=== PATIENT | female | born 1950 | race Caucasian/White ===

== ENCOUNTER 2019-07-20 06:08 | Emergency (ER) | payer MEDICARE, BC ==
--- NOTE | 2019-07-20 07:46 | RADIOLOGY REPORT (SQ) ---
Chest single view on 07/20/2019 at 6:45 AM CLINICAL INDICATION: Shortness of breath, chest pain COMPARISON: None FINDINGS: Postthoracotomy left rib changes are noted. There is unusual opacity along the left medial upper chest along the aortic arch . This may represent unusual aneurysm versus a pulmonary mass. Unless this is a known etiology would recommend follow-up chest CT with contrast. Heart is within normal limits for size. Lungs are otherwise clear. IMPRESSION: Unusual rounded opacity in the left suprahilar region may represent unusual thoracic aortic aneurysm versus mass. Unless this is from a known etiology would recommend follow-up chest CT with contrast to better evaluate.
[2019-07-20 07:51] LABS: ALBUMIN 4.6 g/dL (3.5-5.0); ALKALINE PHOSPHATASE 112 U/L (38-126); ANION GAP 10 (5-19); ASPARTATE AMINO TRANSFERASE 32 U/L (14-36); BILIRUBIN,DIRECT 0.2 mg/dL (0.0-0.4); BILIRUBIN,TOTAL 0.3 mg/dL (0.2-1.3); BLOOD UREA NITROGEN 19 mg/dL (7-20); CALCIUM 9.5 mg/dL (8.4-10.2); CARBON DIOXIDE 25 mmol/L (22-30); CHLORIDE 104 mmol/L (98-107); GLUCOSE 100 mg/dL (75-110); NT PRO BNP 101 pg/mL (<125); POTASSIUM 4.1 mmol/L (3.6-5.0); TOTAL PROTEIN 7.8 g/dL (6.3-8.2); TROPONIN I < 0.012 ng/mL
[2019-07-20 07:58] LABS: ABSOLUTE BASOPHILS # (AUTO) 0.1 10^3/uL (0.0-0.2); ABSOLUTE EOSINOPHILS # (AUTO) 0.1 10^3/uL (0.0-0.6); ABSOLUTE LYMPHOCYTES (AUTO) 3.1 10^3/uL (0.5-4.7); ABSOLUTE MONOCYTES (AUTO) 0.9 10^3/uL (0.1-1.4); ABSOLUTE NEUT (AUTO) 1.5 10^3/uL (1.7-8.2); EOSINOPHILS % (AUTO) 1.8 % (0-6); HEMATOCRIT 40.3 % (36.0-47.0); HEMOGLOBIN 13.8 g/dL (12.0-15.5); LYMPHOCYTES % (AUTO) 55.2 % (13-45); MEAN CORPUSCULAR HEMOGLOBIN 30.5 pg (27.0-33.4); MEAN CORPUSCULAR HGB CONC 34.3 g/dL (32.0-36.0); MEAN CORPUSCULAR VOLUME 89 fl (80-97); MONOCYTES % (AUTO) 16.6 % (3-13); PLATELET COUNT 216 10^3/uL (150-450); RED BLOOD COUNT 4.52 10^6/uL (3.72-5.28); RED CELL DISTRIBUTION WIDTH 13.7 % (11.5-14.0); SEGMENTED NEUTROPHILS % (AUTO) 25.4 % (42-78); TOTAL CELLS COUNTED % (AUTO) 100 %; WHITE BLOOD COUNT 5.7 10^3/uL (4.0-10.5)
--- NOTE | 2019-07-20 07:58 | ER Document Report ---
ED General - General Chief Complaint: Shortness Of Breath Stated Complaint: SHORTNESS OF BREATH Primary Care Provider: KATHY MEIER NP [Primary Care Provider] - Follow up as needed Mode of Arrival: Medic Information source: Patient - HPI Notes: Patient presents with approximately 3 days of increasing shortness of breath and dry cough. She states she has not been able to cough anything up. She does have sharp chest pain but only with coughing. It is better when she does not cough. It radiates across her chest. It is intermittent. It is moderate in intensity. She states she does not have any previous history of congestive heart failure or COPD. She has had no vomiting or diarrhea. No rashes. She states she does not have any previous history of heart disease. - Related Data Allergies/Adverse Reactions: No Known Allergies Allergy (Unverified 07/20/19 07:16) Past Medical History - General Information source: Patient - Social History Smoking Status: Never Smoker Frequency of alcohol use: None Drug Abuse: None Family History: Reviewed & Not Pertinent Patient has suicidal ideation: No Patient has homicidal ideation: No - Past Medical History Cardiac Medical History: Reports: Hx Hypercholesterolemia, Hx Hypertension Past Surgical History: Reports: Hx Cardiac Surgery - coarctation of aorta Review of Systems - Review of Systems Constitutional: Malaise, Weakness. denies: Chills, Fever Cardiovascular: Chest pain. denies: Palpitations Respiratory: Cough, Short of breath. denies: Hemoptysis Gastrointestinal: denies: Abdominal pain -: Yes All other systems reviewed and negative Physical Exam - Vital signs Vitals: Resp Pulse Ox 27 H 100 07/20/19 06:11 07/20/19 06:11 Interpretation: Normal - General General appearance: Appears well, Alert - HEENT Head: Normocephalic, Atraumatic Eyes: Normal Pupils: PERRL - Respiratory Respiratory status: Respiratory distress - Mild Chest status: Nontender Breath sounds: Wheezing - All lang Chest palpation: Normal - Cardiovascular Rhythm: Regular Heart sounds: Normal auscultation Murmur: No - Abdominal Inspection: Normal Distension: No distension Bowel sounds: Normal Tenderness: Nontender Organomegaly: No organomegaly - Back Back: Normal, Nontender - Extremities General upper extremity: Normal inspection, Nontender, Normal color, Normal ROM, Normal temperature General lower extremity: Normal inspection, Nontender, Normal color, Normal ROM, Normal temperature, Normal weight bearing. No: Dae's sign - Neurological Neuro grossly intact: Yes Cognition: Normal Orientation: AAOx4 Ziggy Coma Scale Eye Opening: Spontaneous Ziggy Coma Scale Verbal: Oriented [place] Coma Scale Motor: Obeys Commands [place] Coma Scale Total: 15 Speech: Normal Motor strength normal: LUE, RUE, LLE, RLE Sensory: Normal - Psychological Associated symptoms: Normal affect, Anxious - Skin Skin Temperature: Warm Skin Moisture: Dry Skin Color: Normal Course - Re-evaluation Re-evalutation: 07/20/19 07:57 Patient presents with dry cough shortness of breath. No evidence of cardiac pathology. Chest x-ray does show an abnormal mass in the left upper chest. At this time a CTA has been ordered to further evaluate the mass. She has been placed on BiPAP. She received epinephrine and 3 albuterol's in route. She is currently resting comfortably with saturations of 100% on the BiPAP. She is not in distress at this time. 07/20/19 10:45 Patient was removed from BiPAP and is been observed for 1 hour. She has no further respiratory distress. She is reclining comfortably in sleeping. Her respiratory rate is normal. I do not hear any wheezing or adventitious sounds in the lungs. Her saturations are 94 to 95% while sleeping. She is comfortable with being discharged home with steroids and antibiotics. I will have a follow- up with her family physician as an outpatient. Heart rate is in the 60s. - Vital Signs Vital signs: Temp Pulse Resp BP Pulse Ox 98.9 F 73 19 117/65 92 07/20/19 06:30 07/20/19 06:30 07/20/19 10:01 07/20/19 10:00 07/20/19 10:01 - Laboratory Result Diagrams: 07/20/19 06:17 07/20/19 06:17 Laboratory results interpreted by me: 07/20/19 07/20/19 07/20/19 06:17 06:17 06:17 Lymph % (Auto) 55.2 H [place] % (Auto) 16.6 H Absolute Neuts (auto) 1.5 L Seg Neutrophils % 25.4 L Est GFR ( Amer) 59 L Est GFR (MDRD) Non-Af 49 L Lactic Acid 3.2 H - Diagnostic Test Radiology reviewed: Image reviewed, Reports reviewed - EKG Interpretation by Me EKG shows normal: Sinus rhythm Rate: Normal - 76 Rhythm: NSR Matthews/QRS: No: Right axis deviation, Left axis deviation Discharge - Discharge Clinical Impression: URI (upper respiratory infection) Qualifiers: URI type: unspecified URI Qualified Code(s): J06.9 - Acute upper respiratory infection, unspecified Condition: Stable Disposition: HOME, SELF-CARE Instructions: Upper Respiratory Illness ([facility]) Additional Instructions: Please call your primary care physician as soon as possible to arrange follow-up Prescriptions: Benzonatate [Tessalon Perles 100 mg Capsule] 100 mg PO Q8HP PRN #20 capsule PRN Reason: Amox Tr/Potassium Clavulanate [Augmentin 875-125 Tablet] 1 tab PO BID 10 Days tablet Prednisone 50 mg PO DAILY 5 Days #5 tablet Referrals: KATHY MEIER NP [Primary Care Provider] - Follow up tomorrow
--- NOTE | 2019-07-20 09:00 | RADIOLOGY REPORT (SQ) ---
EXAM DESCRIPTION: CTA CHEST COMPLETED DATE/TIME: 07/20/2019 8:49 am REASON FOR STUDY: cp/sob COMPARISON: Chest x-ray done earlier the same day. TECHNIQUE: CT scan of the chest performed using helical scanning technique with dynamic intravenous contrast injection. Images reviewed with lung, soft tissue and bone windows. Reconstructed coronal and sagittal MPR images reviewed. Additional 3 dimensional post-processing performed to develop Maximal Intensity Projection images (VT P). All images stored on PACS. All CT scanners at this facility use dose modulation, iterative reconstruction, and/or weight based d osing when appropriate to reduce radiation dose to as low as reasonably achievable (ALARA). [facility]: Dose Right [facility]: CareDose [facility]: Dose Right [facility]: Teradose 4D [facility]: DC Devices CONTRAST TYPE AND DOSE: contrast/concentration: Isovue 350.00 mg/ml; Total Contrast Delivered: 70.0 ml; Total Saline Delivered: 70.0 ml Contrast bolus optimized for the pulmonary arteries. Not diagnostic for the aorta. RENAL FUNCTION: BUN 19, creatinine 1.12 RADIATION DOSE: CT Rad equipment meets quality standard of care and radiation dose reduction techniq ues were employed. CTDIvol: 9.9 - 14.9 mGy. DLP: 567 mGy-cm. . LIMITATIONS: None. FINDINGS: LUNGS AND PLEURA: There is a deformity on the left lateral chest wall presumably postsurgi faizan. There is atelectasis with scarring in the left base. AORTA AND GREAT VESSELS: Aorta is ectatic. There is a stent in the aorta in the arch which accounts for the conventional radiographic findings. No focal aneurysm. No dissection. HEART: No pericardial effusion. No significant coronary artery calcifications. PULMONARY ARTERIES: No emboli visualized in the main pulmonary arteries or the segmental branches. HILAR AND MEDIASTINAL STRUCTURES: No identified masses or abnormal nodes. HARDWARE: None in the chest. UPPER ABDOMEN: No significant findings. Limited exam. THYROID AND OTHER SOFT TISSUES: No masses. No adenopathy. BONES: No acute or significant finding. 3D MIPS: Confirm above findings. OTHER: No other significant finding. IMPRESSION: Ectatic aorta accounting for the conventional radiographic findings. No aneurysm or dis section. Probable scarring in the left base possibly atelectasis. No pulmonary emboli. COMMENT: Quality ID # [id number]: Final reports with documentation of one or more dose reduction techniques (e.g., Automated exposure control, adjustment of the mA and/or kV according to patient size, use of iterative reconstruction technique) TECHNICAL DOCUMENTATION: JOB ID: [id number]- All Rights Reserved Reading location - IP/workstation name: [email or web address]
[2019-07-20] MEDS ORDERED: LEVOFLOXACIN 750 MG TABLET PO ONE (09:48)
[2019-07-20] MEDS ORDERED: BENZONATATE 100 MG CAPSULE PO ONE (09:48)
--- NOTE | 2019-07-20 11:09 | EKG REPORT ---
SEVERITY:- ABNORMAL ECG - SINUS RHYTHM ANTERIOR INFARCT, OLD : Confirmed by: Amber Borges MD 20-Jul-2019 11:08:46
[2019-07-20 11:23] VITALS: BP 119/67
== END 2019-07-20 11:23 | disposition home or self-care (01) ==
LOC: ER 06:08
DX: J06.9 Acute upper respiratory infection, unspecified (principal); R06.02 Shortness of breath; R07.9 Chest pain, unspecified; R53.81 Other malaise; E78.00 Pure hypercholesterolemia, unspecified; I10 Essential (primary) hypertension
CPT/HCPCS: 93005; 36415; 87040; 85025; 80053; 84484; 83605; 83880; 71045; 71275; 93010; 94660; A9270 ×2